=== PATIENT | female | born 1975 | race Caucasian/White ===

== ENCOUNTER → 2019-03-15 09:10 | Outpatient (CLI) | payer BC, SELFPAY ==
--- NOTE | 2019-03-15 09:19 | STEWCON_ITS ---
Reason For Study: SOB, LEFT ARM AND THROAT PAIN Stress Results Protocol: Jose Luis Protocol WITH DEFINITY Maximum Predicted HR: 175 bpm Target HR: 149 bpm % Maximum Predicted HR: 95 % DurationHeart Rate Stage (mm:ss) (bpm) BP Comment BASELINE 74 138/881 CC DEFINITY STAGE 1 3:00 127 158/86 STAGE 2 3:00 148 192/72 STAGE 3 2:46 166 190/801 CC DEFINITY, INCREASED SOB RECOVERY 99 142/82 Stress Duration: 8:46 mm:ss Maximum Stress HR: 166 bpm Baseline Echocardiogram Findings Stress Echo Wall motion Data Resting WM Intermediate WM Stress WM Resting Wall Motion Wall Motion Stress No regional wall motion No regional wall motion abnormalities noted. abnormalities noted. Ejection Fraction 60 %. Ejection Fraction 70 %. Interpretation Summary Exercise stress echo. Stress protocol: Resting EKG demonstrates normal sinus rhythm with a rate of 75 bpm normal intervals. The resting blood pressure is 138/88 mmHg. The patient exercised according to regular Jose Luis protocol for a total duration of 8 minutes and 46 seconds. The maximum heart rate attained was 171 bpm which was 97% of maximum predicted heart rate and maximum workload was 10.1 metabolic equivalents. At rest there were no ST or T wave changes noted suggest ischemia peak exercise upsloping ST changes were noted with no meet the criteria for ischemia. The resting blood pressure 738/80 8 m of mercury peak blood pressure 192/72 mmHg. Stress echocardiogram for images. Resting and stress echocardiogram images were obtained with and without Definity. The resting ejection fraction was 60% peaking at an ejection fraction of 70% with no wall motion abnormalities noted. Conclusion: Normal exercise stress echo with no EKG changes for ischemia. No clinical angina noted. Normal resting and stress echocardiographic images. Ordering Physician: Xander Lopez Referring Physician: Xander Lopez Performed By: Paul Angela RCS
== END ==
PROVIDERS: Family Provider Family Medicine; PCP Family Medicine; Referring Provider Family Medicine; Visit Provider Family Medicine
DX: R06.02 Shortness of breath (principal); M79.602 Pain in left arm; R07.0 Pain in throat
CPT/HCPCS: 93017; 93350; Q9957; A4216; C8928

== ENCOUNTER 2021-10-30 17:59 | Emergency (ER) | payer BC, SELFPAY ==
[2021-10-30 17:59] VITALS: BP 168/95; PULSE 91; RESP 18; TEMP 35.8; O2SAT 100; BMI 34.3
[2021-10-30 20:20] VITALS: RESP 16
--- NOTE | 2021-10-30 20:24 | RAD_ITS ---
STUDY: X-RAY - LEFT SHOULDER REASON FOR EXAM: Female, 46 years old. C/O CHEST AND LT SHOULDER PAIN X 3 WEEKS AFTER MOVING FIRE WOOD TECHNIQUE: view(s) of the shoulder. COMPARISON: None. FINDINGS: Chronic small cortical defect seen in the central to inferior aspect of the glenoid most likely due to prior trauma or developmental in nature. This finding could also be related to a prior osteochondral defect in this region. Normal glenohumeral articulation. Normal acromioclavicular joint. Normal acromion. Normal humeral head and visualized proximal humerus. The soft tissue structures are unremarkable. There is no demonstrated fracture. Normal visualized pulmonary apex. RAD/Shoulder min 2 Views IMPRESSION: 1. Chronic small cortical defect seen in the central to inferior aspect of the glenoid most likely due to prior trauma or developmental in nature. This finding could also be related to a prior osteochondral defect in this region Electronically Signed: Prakash Zurita MD at 21:56 EST ,
--- NOTE | 2021-10-30 20:24 | EKG12_ITS ---
Test Reason : Blood Pressure : / mmHG Vent. Rate : 082 BPM Atrial Rate : 082 BPM P-R Int : 138 ms QRS Dur : 082 ms QT Int : 392 ms P-R-T Axes : 044 -32 040 degrees QTc Int : 457 ms Normal sinus rhythm Left axis deviation Borderline Low voltage QRS Abnormal ECG Confirmed by NIEVES ALDRICH, HUSSEIN ([id number]), copy editor NORI DAILEY ([id number]) on 11/02/2021 9:44:45 AM Referred By: TRAVIS Confirmed By:HUSSEIN PICKETT MD
--- NOTE | 2021-10-30 20:24 | RAD_ITS ---
STUDY: X-RAY CHEST REASON FOR EXAM: Female, 46 years old. chest pain C/O CHEST AND LT SHOULDER PAIN X 3 WEEKS AFTER MOVING FIRE WOOD TECHNIQUE: Single AP portable view of the chest. COMPARISON: Left shoulder x-ray on the same day FINDINGS: The lungs are clear and expanded. There is no demonstrated pleural abnormality. Normal size heart. Normal mediastinum and maria elena. Normal visualized pulmonary arteries. Normal visualized aortic arch and descending thoracic aorta. Normal visualized thoracic spine. Normal visualized ribs, clavicles, and shoulders. There is no demonstrated abnormality of the visualized soft tissue structures of the upper abdomen. RAD/Chest 1 View (Portable) IMPRESSION: 1. Normal x-ray examination of the chest. 2. Defect of the left glenoid is better appreciated on the dedicated left shoulder images. Electronically Signed: Prakash Zurita MD at 21:57 EST ,
[2021-10-30] MEDS: Aspirin 81 MG TAB.CHEW 324 MG PO (20:44)
[2021-10-30 21:29] LABS: Absolute Lymphocyte Count 2.95 X10^3/uL (0.83-4.51); Absolute Neutrophil Count 7.2 X10^3/uL (2.0-7.7); Basophil# 0.04 X10^3/uL; Basophil% 0.4 % (0-1); Eosinophil# 0.21 X10^3/uL; Eosinophils% 1.9 % (0-5); Hematocrit 37.4 % (37-47); Hemoglobin 12.9 g/dL (12.0-15.0); Lymphocyte # 2.95 X10^3/ul (0.83-4.51); Lymphocyte % 26.5 % (19-41); Mean Corp Hgb Conc 34.5 g/dL (32-36); Mean Corpuscular Hgb 29.3 pg (27.0-32.0); Mean Platelet Vol. 9.4 fl (6.2-12.0); Monocyte# 0.69 X10^3/uL; Monocyte% 6.2 % (0-10); NRBC Flagged by Analyzer 0 % (0-5); Neutrophil # 7.23 X10^3/uL (2.7-7.7); Neutrophil % 64.7 % (47-70); Platelet Count 280 K/mm3 (150-450); RBC Distribution Width CV 12.3 % (11.6-14.6); RBC Distribution Width SD 37.5 fl (35.1-43.9); White Blood Count 11.2 K/mm3 (4.4-11.0)
[2021-10-30 21:42] VITALS: BP 169/74; PULSE 74; RESP 19
[2021-10-30 22:00] LABS: Anion Gap 7 (5-15); BUN 11 mg/dL (7-18); BUN/Creat Ratio 11.8 RATIO (10-20); Chloride 110 mmol/L (98-107); Creatinine, Serum 0.93 mg/dL (0.55-1.02); EST Glomerular Filtration Rate 68 mL/min (>60); Est Glom Filt Rate - Afr Amer 82 mL/min (>60); Estimated Creatinine Clearance 63.88 ml/min; Glucose 83 mg/dL (74-106); Potassium 3.8 mmol/L (3.5-5.1); Sodium Level 140 mmol/L (136-145); Troponin-I HS 4 pg/mL (3.0-54.0)
[2021-10-30 22:28] LABS: Troponin-I HS 4 pg/mL (3.0-54.0)
--- NOTE | 2021-10-30 23:00 | CT_ITS ---
STUDY: CTA CHEST REASON FOR EXAM: Female, 46 years old. SOB,LT SHOULDER PAIN AFTER CARRYING WOOD,PAIN RADIATES INTO CHEST RULE out PE RADIATION DOSAGE (If Supplied By Facility): CTDIvol = ( 13.60 ) mGy, DLP = ( 536.35 ) mGycm TECHNIQUE: The examination was performed with the intravenous administration of IV 100mL Isovue-370. Post-processing of the angiographic images was performed, with multiplanar reformation and 3D reconstruction. Individualized dose optimization techniques were used for this CT. COMPARISON: Chest x-ray dated October 30, 2021 FINDINGS: Normal enhancement of the main pulmonary artery and right and left pulmonary arteries. Normal enhancement of the bilateral peripheral pulmonary arteries. There is no demonstrated pulmonary embolism. Normal thoracic aorta and visualized great vessels. There is no demonstrated aortic dissection. Normal heart and pericardium. No demonstrated calcifications of the coronary arteries. Normal mediastinum. Normal hilar regions. Normal visualized trachea and bronchi. The lungs are well expanded. Normal pulmonary parenchyma. No visualized consolidation or pulmonary edema or pleural effusion. Normal pleura. Normal chest wall structures. There are degenerative changes of thoracic spine. Normal visualized upper abdomen. CT/CTA Chest W/WO Contrast IMPRESSION: 1. Normal CTA chest examination, without a demonstrated pulmonary embolism or arterial dissection. 2. No visualized consolidation or pulmonary edema or pleural effusion. Electronically Signed: Prakash Zurita MD at 23:56 [facility] ,
[2021-10-30 23:05] VITALS: BP 166/93; PULSE 79; RESP 20
--- NOTE | 2021-10-30 23:14 | EX.ED.DYSGE1 ---
HPI History of Present Illness Chief Complaint: General Illness Informant: patient Narrative Narrative: 46-year-old female presenting with left shoulder pain. She states that she was carrying wood into her house before this started. She has had intermittent pain for the past 3 weeks and she states over the past several days it has become continuous. Pain occasionally will radiate into her chest. She denies shortness of breath. Denies nausea or vomiting. Denies PE/DVT risk factors. Pain is worsened with range of motion. She has tried Aleve without relief. Prior similar symptoms: No Recent Illness/Hospitalization: No PFSH PFSH Medical History no medical history Home Medications hydrocodone-acetaminophen 1 tab PO Q6H PRN PRN 3 Days #10 tablet 10/31/21 [Rx Last Taken Unknown] Allergy/AdvReac Type Severity Reaction Status Date / Time No Known Allergies Allergy Verified 10/30/21 18:03 Social History Smoking Status: Unknown if ever smoked ROS ROS ED Constitutional Constitutional ED: Denies fever(s) Eyes Eyes: Denies change in vision ENT ENT ED: Denies rhinorrhea or sore throat Cardiovascular Cardiovascular: Reports chest pain; Denies palpitations Respiratory/Chest Respiratory/Chest: Denies cough or dyspnea Gastrointestinal Gastrointestinal: Denies abdominal pain, diarrhea, nausea or vomiting Genitourinary Genitourinary ED: Denies dysuria Musculoskeletal Musculoskeletal: Reports other Details: Left shoulder pain ; Denies myalgias Integumentary Denies rash Neurologic Neurologic: Denies headache(s) Psychiatric Psychiatric: Denies suicidal thoughts EXAM Physical Exam Const Vital Signs: 10/30/21 17:59 10/30/21 20:20 10/30/21 20:59 Temperature 96.5 F L Temperature Source Temporal Pulse Rate 91 Respiratory Rate 18 16 Blood Pressure 168/95 H Blood Pressure Mean 119 Pulse Ox 100 Oxygen Delivery Method Room Air Room Air 10/30/21 21:42 10/30/21 23:05 Temperature Temperature Source Pulse Rate 74 79 Respiratory Rate 19 H 20 H Blood Pressure 169/74 H 166/93 H Blood Pressure Mean 105 117 Pulse Ox Oxygen Delivery Method Positive well nourished and well developed General Appearance ED: well developed HEENT Reports normocephalic and head/scalp atraumatic Eyes PERRL and EOMs intact bilaterally Neck supple General: Negative for tenderness Chest Wall inspection of chest normal Resp normal respiratory effort and clear to auscultation bilaterally Cardio regular rate and regular rhythm GI non-tender and non-distended Palpation: soft; Negative for guarding or rebound tenderness present no CVA tenderness Extremity normal to inspection Extremity Narrative: Left posterior shoulder tenderness to palpation. Active full range of motion. Neuro oriented x3 Sensorium / Orientation: alert Psych mental status grossly normal Skin no rashes or lesions noted MDM MDM MDM Narrative Medical decision making narrative: EKG is sinus rate of 82 with no acute ischemic changes. Chest x-ray read by myself and radiology shows no acute process. Left shoulder x-ray read by radiology shows chronic small cortical defect seen in the central to inferior aspect of the glenoid most likely due to prior trauma or developmental in nature. This finding could also be related to a prior osteochondral defect in this region. CBC normal except white count 11.2. Chemistries unremarkable. Troponin is negative. Delta troponin is negative. CTA chest shows no evidence of PE. She is advised to continue NSAIDs and is given short course of [place]. She was advised to follow-up with primary care physician and orthopedics as needed. Advised return to ED for worsening complaints. Lab Data Attestation: I reviewed the patient's lab results. Labs: Laboratory Results - last 24 hr 10/30/21 10/30/21 10/30/21 20:48 20:48 22:05 WBC 11.2 H RBC 4.40 Hgb 12.9 Hct 37.4 MCV 85.0 MCH 29.3 MCHC 34.5 RDW Std Deviation 37.5 RDW Coeff of Jason 12.3 Plt Count 280 MPV 9.4 Immature Gran % (Auto) 0.300 Neut % (Auto) 64.7 Lymph % (Auto) 26.5 [place] % (Auto) 6.2 Eos % (Auto) 1.9 Baso % (Auto) 0.4 Absolute Neuts (auto) 7.2 Absolute Lymphs (auto) 2.95 Nucleated RBC % 0 Sodium 140 Potassium 3.8 Chloride 110 H Carbon Dioxide 23.0 Anion Gap 7 BUN 11 Creatinine 0.93 Estim Creat Clear Calc 63.88 Est GFR (MDRD) Af Amer 82 Est GFR (MDRD) Non-Af 68 BUN/Creatinine Ratio 11.8 Glucose 83 Calcium 9.0 Troponin I High Sens 4 4 Radiography Chest X-Ray - ED: 1 View, Read by ED Physician and Read by Radiologist Diagnostic Testing: Clinical Impression(s) from Imaging Studies Chest X-Ray 10/30/21 20:24 IMPRESSION: 1. Normal x-ray examination of the chest. 2. Defect of the left glenoid is better appreciated on the dedicated left shoulder images. Electronically Signed: Prakash Zurita MD at 21:57 EST , Shoulder X-Ray 10/30/21 20:24 IMPRESSION: 1. Chronic small cortical defect seen in the central to inferior aspect of the glenoid most likely due to prior trauma or developmental in nature. This finding could also be related to a prior osteochondral defect in this region Electronically Signed: Prakash Zurita MD at 21:56 EST , Chest CTA 10/30/21 23:00 IMPRESSION: 1. Normal CTA chest examination, without a demonstrated pulmonary embolism or arterial dissection. 2. No visualized consolidation or pulmonary edema or pleural effusion. Electronically Signed: Prakash Zurita MD at 23:56 EST , EKG Initial EKG: Attestation: I personally reviewed and interpreted this EKG as follows: Interpretation: Sinus Rhythm and No Acute Injury Pattern Discharge Plan Triage Chief Complaint: General Illness Other Complaint: Chest Pain ED Provider: Veronika Moran Dx/Rx/DC Orders Clinical Impression: Left shoulder pain, Atypical chest pain Instructions: ED Chest Pain, Uncertain Cause, ED Shoulder Sprain Prescriptions: New hydrocodone-acetaminophen 5-325 mg tablet 1 tab PO Q6H PRN PRN (Reason: Pain) 3 Days Qty: 10 RF: 0 Primary Care Provider: Xander Lopez Referrals: Xavi Moore DO [STAFF PHYSICIAN] - Xander Lopez MD [Primary Care Provider] - Disposition Disposition: Home, Self Care
== END 2021-10-31 00:33 | disposition home or self-care (01) ==
PROVIDERS: Emergency Provider Emergency Medicine; PCP Family Medicine; Visit Provider Emergency Medicine
DX: M25.512 Pain in left shoulder (principal); R07.89 Other chest pain
CPT/HCPCS: 71045; 71275; 73030; 80048; 84484; 85025; 93005; 99283; Q9967; A4216

== ENCOUNTER → 2024-07-15 | Outpatient (CLI) | payer BC, SELFPAY | END | disposition home or self-care (01) | LOC: US 08:17 | PROVIDERS: PCP Family Medicine; Referring Provider Family Medicine; Visit Provider Family Medicine | DX: R10.11 Right upper quadrant pain (principal) | CPT/HCPCS: 76705 ==

== ENCOUNTER → 2024-07-22 | Outpatient (CLI) | payer BC, SELFPAY ==
--- NOTE | 2024-07-22 08:00 | ECHOD_ITS ---
Reason For Study: HTN, Palpitations Procedure This was a 2D Doppler, Color Flow transthoracic echocardiogram. Exam performed in department. Left Ventricle Normal left ventricle. Left ventricular systolic function is normal. The left ventricular ejection fraction is 65 %. No regional wall motion abnormalities noted. Right Ventricle Normal right ventricle. Atria Normal left atrium. Normal right atrium. Mitral Valve Normal mitral valve. Tricuspid Valve Normal tricuspid valve. Pulmonic Valve Normal pulmonic valve. Great Vessels Normal aortic root. The pulmonary artery is normal size. Normal inferior vena cava. Pericardium/Pleural No pericardial effusion. MMode/2D Measurements & Calculations LVIDd: 4.7 cm IVSd: 0.84 cm Ao root diam: 3.3 cm LVIDs: 2.7 cm LVPWd: 0.69 cm RVDd: 3.1 cm FS: 43.6 % LAV(MOD-bp): 21.7 ml LVAd ap4: 22.5 cm2 SV(MOD-sp4): 39.4 ml LAV(MOD-bp) Indexed: 11.0 ml/m2 LVLd ap4: 6.9 cm SI(MOD-sp4): 19.8 ml/m2 LAV(MOD-sp2): 23.9 ml EDV(MOD-sp4): 61.1 ml LAV(MOD-sp4): 19.6 ml EDV(sp4-el): 62.1 ml LVAs ap4: 11.6 cm2 LVLs ap4: 5.5 cm ESV(MOD-sp4): 21.8 ml ESV(sp4-el): 20.7 ml EF(MOD-sp4): 64.4 % EF(sp4-el): 66.7 % SV(sp4-el): 41.4 ml LA dimension(2D): 3.7 cm LA A4 area: 9.8 cm2 RA A4 area: 10.2 cm2 TAPSE: 2.2 cm Time Measurements MV dec time: 0.22 sec Doppler Measurements & Calculations MV E max george: 103.5 cm/sec Lat Peak E' George: 11.3 cm/sec Med Peak E' George: 11.8 cm/sec MV A max george: 97.2 cm/sec E/E' lat: 9.2 E/E' med: 8.8 MV E/A: 1.1 MV V2 max: 115.3 cm/sec MV P1/2t max george: 117.3 cm/sec Ao V2 max: 154.4 cm/sec MV max P.3 mmHg MV P1/2t: 74.0 msec Ao max P.6 mmHg MV V2 mean: 64.3 cm/sec Ao V2 mean: 100.7 cm/sec MV mean P.0 mmHg MV dec slope: 464.3 cm/sec2 Ao mean P.8 mmHg MV V2 VTI: 39.3 cm MVA(P1/2t): 3.0 cm2 Ao V2 VTI: 31.2 cm AV (velocity ratio): 0.75 LV V1 max: 113.4 cm/sec PA V2 max: 94.6 cm/sec LV V1 max P.2 mmHg LV V1 mean P.8 mmHg LV V1 mean: 79.8 cm/sec LV V1 VTI: 23.5 cm ECHO/Echo Complete Interpretation Summary Normal left ventricle. Left ventricular systolic function is normal. The left ventricular ejection fraction is 65 %. Structurally normal valves. Ordering Physician: LIBRA FORD Referring Physician: LIBRA FORD Performed By: Paul Angela RCS
== END | disposition home or self-care (01) ==
PROVIDERS: Referring Provider Family Medicine; Visit Provider Family Medicine
DX: R00.2 Palpitations (principal); I10 Essential (primary) hypertension
CPT/HCPCS: 93306